=== PATIENT | female | born 1990 | race Caucasian/White ===

== ENCOUNTER 2020-04-30 20:55 | Emergency (ER) | payer MEDICAID ==
[~2020-04-30] VITALS: Ht 162.6 cm; Wt 60.0 kg
[2020-04-30 21:07] VITALS: BP 113/70
== END 2020-04-30 23:26 | disposition left against medical advice (07) ==
LOC: ER 20:55
DX: R51.9 Headache, unspecified (principal); R10.30 Lower abdominal pain, unspecified; R00.0 Tachycardia, unspecified; Z53.29 Procedure and treatment not carried out because of patient's decision for other reasons; V49.88XA Car occupant (driver) (passenger) injured in other specified transport accidents, initial encounter; Y93.89 Activity, other specified; Y92.89 Other specified places as the place of occurrence of the external cause; Y99.8 Other external cause status
CPT/HCPCS: 99283